=== PATIENT | female | born 1965 | race Caucasian/White ===

== ENCOUNTER → 2018-03-30 | Outpatient (CLI) | payer OTHER ==
[~2018-03-30] MED LIST: B-100 COMPLEX1 EAC1 PO; CLIMARA PRO PA1 EACH TD; IBUPROFEN 600600 M1 PO; MULTIVITAMINS PO; PRISTIQ100 MG PO; VICODIN 5-5001 EACH; VITAMIN C PO; VITAMIN E400 UNIT PO
== END ==
LOC: M.RAD 07:10
DX: Z12.31 Encounter for screening mammogram for malignant neoplasm of breast (principal)